=== PATIENT | female | born 1990 | race American Indian/Alaskan Native ===

== ENCOUNTER 2016-09-30 00:43 | Outpatient (CLI) | payer MEDICAID ==
--- NOTE | 2016-09-29 21:23 | Emergency Department Report ---
HPI - General Chief Complaint: Dental/Oral Time Seen by Provider: 09/29/16 21:15 - HPI HPI: Patient here complaining of right upper tooth pain with pressure to her mouth and head. She said the pain started yesterday. Pain is 10 out of 10 and achy. Denies any swelling to face. Denies any fever or chills. Denies any nausea or vomiting. Patient states that she is 25 weeks and denies any vaginal bleed or discharge and abdominal pain. Denies any back pain. Denies any urinary burning frequency or urgency. She reports that she was feeling dizzy today and she thinks is because she is not drinking enough fluids. Denies syncope or palpitation. ED Past Medical Hx - Past Medical History Previous Medical History?: Yes Hx Hypertension: No Hx CVA: No Hx Heart Attack/AMI: No Hx Congestive Heart Failure: No Hx Diabetes: No Hx Deep Vein Thrombosis: No Hx Pulmonary Embolism: No Hx GERD: No Hx Liver Disease: No Hx Renal Disease: No Hx of Cancer: No Hx Sickle Cell Disease: No Hx Arthritis: No Hx Headaches / Migraines: No Hx Seizures: No Hx Kidney Stones: No Hx Psychiatric Treatment: No Hx Asthma: Yes (as child) Hx COPD: No Hx Tuberculosis: No Hx Dementia: No Hx HIV: No - Surgical History Past Surgical History?: No Hx Coronary Stent: No Hx Open Heart Surgery: No Hx Pacemaker: No Hx Internal Defibrillator: No Hx Cholecystectomy: No Hx Appendectomy: No Hx Breast Surgery: No - Family History Family history: no significant - Social History Smoking Status: Never Smoker Substance Use Type: None - Medications Home Medications: Home Medications Medication Instructions Recorded Confirmed Last Taken Type Acetaminophen [Tylenol] 500 mg PO Q8H PRN #12 tablet 09/29/16 Unknown Rx Amoxicillin/K Clav Tab [Augmentin 1 tab PO Q12HR #20 tab 09/29/16 Unknown Rx 875 mg] ED Review of Systems ROS: Stated complaint: 24WKS PREG/TOOTHACHE/DIZZINESS Other details as noted in HPI Comment: All other systems reviewed and negative Constitutional: denies: chills, fever Eyes: denies: eye pain, vision change ENT: dental pain. denies: ear pain, throat pain, congestion Respiratory: no symptoms reported Cardiovascular: denies: chest pain, palpitations, edema, syncope Gastrointestinal: denies: abdominal pain, nausea, vomiting, diarrhea, constipation, hematemesis, melena, hematochezia Genitourinary: denies: urgency, dysuria, frequency, hematuria, discharge Musculoskeletal: denies: back pain, arthralgia, myalgia Skin: denies: rash Neurological: other (lightheadedness). denies: headache, weakness, numbness, paresthesias, confusion, abnormal gait, vertigo Physical Exam - Physical Exam Vital Signs: Vital Signs 09/29/16 19:37 Temperature 98.6 F Pulse Rate 18 L Respiratory 18 Rate Blood Pressure 110/75 O2 Sat by Pulse 99 Oximetry Vital Signs 09/29/16 09/29/16 19:37 22:24 Temperature 98.6 F Pulse Rate 18 L Pulse Rate [ 86 Lying] Pulse Rate [ 86 Sitting] Pulse Rate [ 118 H Standing] Respiratory 18 Rate Blood Pressure 110/75 Blood Pressure 106/67 [Lying] Blood Pressure 105/67 [Sitting] Blood Pressure 101/71 [Standing] O2 Sat by Pulse 99 Oximetry Orthostatic vital signs above General: This is a 26-year-old female well-nourished well-developed in no acute distress. Physical Exam: Head: Normocephalic atraumatic Mouth: Mucous membranes dry, no pharyngeal exudate or erythema. Uvula is midline and oral airway is patent. No facial swelling. No peritonsillar abscesses. Teeth #17 with cavity and no pulp exposure. No erythema and no gingival enlargement. Neck: Supple, no C-spine tenderness, no tracheal deviation. Nontender to palpate. no adenopathy Ears: Bilateral TMs normal .Bilateral EAC without any redness swelling or drainage. Abdomen: Soft, nontender to palpate in all quadrants, normal bowel sounds in all quadrant and negative CVA tenderness bilaterally. Neurological: GCS of 15, alert and oriented 3. Speech is clear and fluid. Normal gait. No motor or sensory deficit. Normal reflexes. No facial drooping. No pronator drift and negative Romberg. Eyes: Bilateral pupils equal and reactive to light, bilateral EOM intact. Bilateral sclera and conjunctiva without injection. Normal accommodation. Lungs: Cleart to auscultate bilaterally no rhonchi wheezes or rales. Normal work of breathing extremity; No CCE. +2 pulses. No neurovascular compromise Cardiovascular: S1-S2, regular rate rhythm. No murmurs. Skin: clean Dry and intact no rash no lesions Psych: Normal mood and behavior ED Course Vital Signs 09/29/16 19:37 Temperature 98.6 F Pulse Rate 18 L Respiratory 18 Rate Blood Pressure 110/75 O2 Sat by Pulse 99 Oximetry Vital Signs 09/29/16 09/29/16 19:37 22:24 Temperature 98.6 F Pulse Rate 18 L Pulse Rate [ 86 Lying] Pulse Rate [ 86 Sitting] Pulse Rate [ 118 H Standing] Respiratory 18 Rate Blood Pressure 110/75 Blood Pressure 106/67 [Lying] Blood Pressure 105/67 [Sitting] Blood Pressure 101/71 [Standing] O2 Sat by Pulse 99 Oximetry Vital Signs 09/29/16 09/29/16 09/29/16 19:37 22:24 23:50 Temperature 98.6 F Pulse Rate 18 L 103 H Pulse Rate [ From Monitor] Pulse Rate [ 86 Lying] Pulse Rate [ 86 81 Sitting] Pulse Rate [ 118 H 103 H Standing] Respiratory 18 18 Rate Blood Pressure 110/75 Blood Pressure 106/67 [Lying] Blood Pressure [Right Arm] Blood Pressure 112/74 [Right] Blood Pressure 105/67 98/66 [Sitting] Blood Pressure 101/71 112/74 [Standing] O2 Sat by Pulse 99 99 Oximetry 09/30/16 09/30/16 09/30/16 01:02 01:06 01:07 Temperature 98.4 F Pulse Rate 87 88 Pulse Rate [ 86 From Monitor] Pulse Rate [ Lying] Pulse Rate [ Sitting] Pulse Rate [ Standing] Respiratory 20 Rate Blood Pressure 99/61 Blood Pressure [Lying] Blood Pressure 99/61 [Right Arm] Blood Pressure [Right] Blood Pressure [Sitting] Blood Pressure [Standing] O2 Sat by Pulse 98 98 Oximetry 09/30/16 09/30/16 09/30/16 01:11 01:16 01:21 Temperature Pulse Rate 84 87 102 H Pulse Rate [ From Monitor] Pulse Rate [ Lying] Pulse Rate [ Sitting] Pulse Rate [ Standing] Respiratory Rate Blood Pressure Blood Pressure [Lying] Blood Pressure [Right Arm] Blood Pressure [Right] Blood Pressure [Sitting] Blood Pressure [Standing] O2 Sat by Pulse 98 98 98 Oximetry 09/30/16 09/30/16 09/30/16 01:26 01:31 01:33 Temperature Pulse Rate 93 H 96 H 93 H Pulse Rate [ From Monitor] Pulse Rate [ Lying] Pulse Rate [ Sitting] Pulse Rate [ Standing] Respiratory Rate Blood Pressure 104/72 Blood Pressure [Lying] Blood Pressure [Right Arm] Blood Pressure [Right] Blood Pressure [Sitting] Blood Pressure [Standing] O2 Sat by Pulse 98 98 Oximetry 09/30/16 09/30/16 09/30/16 01:36 01:41 01:46 Temperature Pulse Rate 96 H 89 84 Pulse Rate [ From Monitor] Pulse Rate [ Lying] Pulse Rate [ Sitting] Pulse Rate [ Standing] Respiratory Rate Blood Pressure Blood Pressure [Lying] Blood Pressure [Right Arm] Blood Pressure [Right] Blood Pressure [Sitting] Blood Pressure [Standing] O2 Sat by Pulse 100 100 100 Oximetry 09/30/16 09/30/16 09/30/16 01:48 01:51 01:56 Temperature Pulse Rate 88 86 87 Pulse Rate [ From Monitor] Pulse Rate [ Lying] Pulse Rate [ Sitting] Pulse Rate [ Standing] Respiratory Rate Blood Pressure 111/75 Blood Pressure [Lying] Blood Pressure [Right Arm] Blood Pressure [Right] Blood Pressure [Sitting] Blood Pressure [Standing] O2 Sat by Pulse 99 99 Oximetry 09/30/16 09/30/16 09/30/16 02:01 02:03 02:06 Temperature Pulse Rate 91 H 88 88 Pulse Rate [ From Monitor] Pulse Rate [ Lying] Pulse Rate [ Sitting] Pulse Rate [ Standing] Respiratory Rate Blood Pressure 109/75 Blood Pressure [Lying] Blood Pressure [Right Arm] Blood Pressure [Right] Blood Pressure [Sitting] Blood Pressure [Standing] O2 Sat by Pulse 99 99 Oximetry 09/30/16 09/30/16 09/30/16 02:11 02:16 02:23 Temperature Pulse Rate 86 85 101 H Pulse Rate [ From Monitor] Pulse Rate [ Lying] Pulse Rate [ Sitting] Pulse Rate [ Standing] Respiratory Rate Blood Pressure 105/61 Blood Pressure [Lying] Blood Pressure [Right Arm] Blood Pressure [Right] Blood Pressure [Sitting] Blood Pressure [Standing] O2 Sat by Pulse 99 100 Oximetry 09/30/16 09/30/16 09/30/16 02:33 03:49 03:50 Temperature Pulse Rate 86 93 H 95 H Pulse Rate [ From Monitor] Pulse Rate [ Lying] Pulse Rate [ Sitting] Pulse Rate [ Standing] Respiratory Rate Blood Pressure 107/67 118/70 Blood Pressure [Lying] Blood Pressure [Right Arm] Blood Pressure [Right] Blood Pressure [Sitting] Blood Pressure [Standing] O2 Sat by Pulse 99 Oximetry 09/30/16 03:55 Temperature Pulse Rate 92 H Pulse Rate [ From Monitor] Pulse Rate [ Lying] Pulse Rate [ Sitting] Pulse Rate [ Standing] Respiratory Rate Blood Pressure Blood Pressure [Lying] Blood Pressure [Right Arm] Blood Pressure [Right] Blood Pressure [Sitting] Blood Pressure [Standing] O2 Sat by Pulse 99 Oximetry - Reevaluation(s) Reevaluation #1: 09/29/16 22:30 Orthostatic vital signs heart rate increased to 118 standing and patient says she was feeling dizzy. Patient started on IV fluid normal saline to be given 1 L and she was given Tylenol 500 mg by mouth for toothache. Patient will be going to be after discharge from the emergency room. Labs drawn and sent. Urine still pending 09/29/16 23:07 FHT 162 09/30/16 19:05 Reevaluation #2: 09/29/16 23:07 Patient remained stable and IV fluid infusion. She still to give urine specimen Reevaluation #3: 09/30/16 00:35 Patient transfer to labor delivery for further evaluation and treatment @25 weeks. Orthostartics better. She was feeling better. 09/30/16 19:08 ED Medical Decision Making - Lab Data Result diagrams: 09/29/16 21:48 09/29/16 21:48 Lab Results 09/29/16 09/29/16 Range/Units 21:48 21:48 WBC 13.4 H (4.5-11.0) K/mm3 RBC 3.97 (3.65-5.03) M/mm3 Hgb 11.9 (10.1-14.3) gm/dl Hct 35.9 (30.3-42.9) % MCV 90 (79-97) fl MCH 30 (28-32) pg MCHC 33 (30-34) % RDW 13.7 (13.2-15.2) % Plt Count 236 (140-440) K/mm3 Lymph % (Auto) 12.2 L (13.4-35.0) % [place] % (Auto) 7.1 (0.0-7.3) % Eos % (Auto) 0.3 (0.0-4.3) % Baso % (Auto) 0.2 (0.0-1.8) % Lymph # 1.6 (1.2-5.4) K/mm3 [place] # 1.0 H (0.0-0.8) K/mm3 Eos # 0.0 (0.0-0.4) K/mm3 Baso # 0.0 (0.0-0.1) K/mm3 Seg Neutrophils % 80.2 H (40.0-70.0) % Seg Neutrophils # 10.8 H (1.8-7.7) K/mm3 Sodium 138 (137-145) mmol/L Potassium 4.2 (3.6-5.0) mmol/L Chloride 99.1 (98-107) mmol/L Carbon Dioxide 22 (22-30) mmol/L Anion Gap 21 mmol/L BUN 6 L (7-17) mg/dL Creatinine 0.4 L (0.7-1.2) mg/dL Estimated GFR > 60 ml/min BUN/Creatinine Ratio 15.00 % Glucose 93 (65-100) mg/dL Calcium 9.7 (8.4-10.2) mg/dL Lab Results 09/29/16 09/29/16 09/29/16 Range/Units 21:48 21:48 22:32 WBC 13.4 H (4.5-11.0) K/mm3 RBC 3.97 (3.65-5.03) M/mm3 Hgb 11.9 (10.1-14.3) gm/dl Hct 35.9 (30.3-42.9) % MCV 90 (79-97) fl MCH 30 (28-32) pg MCHC 33 (30-34) % RDW 13.7 (13.2-15.2) % Plt Count 236 (140-440) K/mm3 Lymph % (Auto) 12.2 L (13.4-35.0) % [place] % (Auto) 7.1 (0.0-7.3) % Eos % (Auto) 0.3 (0.0-4.3) % Baso % (Auto) 0.2 (0.0-1.8) % Lymph # 1.6 (1.2-5.4) K/mm3 [place] # 1.0 H (0.0-0.8) K/mm3 Eos # 0.0 (0.0-0.4) K/mm3 Baso # 0.0 (0.0-0.1) K/mm3 Seg Neutrophils % 80.2 H (40.0-70.0) % Seg Neutrophils # 10.8 H (1.8-7.7) K/mm3 Sodium 138 (137-145) mmol/L Potassium 4.2 (3.6-5.0) mmol/L Chloride 99.1 (98-107) mmol/L Carbon Dioxide 22 (22-30) mmol/L Anion Gap 21 mmol/L BUN 6 L (7-17) mg/dL Creatinine 0.4 L (0.7-1.2) mg/dL Estimated GFR > 60 ml/min BUN/Creatinine Ratio 15.00 % Glucose 93 (65-100) mg/dL Calcium 9.7 (8.4-10.2) mg/dL TSH (0.270-4.200) mlU/mL HCG, Quant 3069 H (0-4) mIU/mL Urine Color (Yellow) Urine Turbidity (Clear) Urine pH (5.0-7.0) Ur Specific [place] (1.003-1.030) Urine Protein (Negative) mg/dL Urine Glucose (UA) (Negative) mg/dL Urine Ketones (Negative) mg/dL Urine Blood (Negative) Urine Nitrite (Negative) Urine Bilirubin (Negative) Urine Urobilinogen (<2.0) mg/dL Ur Leukocyte Esterase (Negative) Urine WBC (Auto) (0.0-6.0) /HPF Urine RBC (Auto) (0.0-6.0) /HPF U Epithel Cells (Auto) (0-13.0) /HPF Urine Mucus /HPF 09/29/16 09/29/16 Range/Units 23:09 23:22 WBC (4.5-11.0) K/mm3 RBC (3.65-5.03) M/mm3 Hgb (10.1-14.3) gm/dl Hct (30.3-42.9) % MCV (79-97) fl MCH (28-32) pg MCHC (30-34) % RDW (13.2-15.2) % Plt Count (140-440) K/mm3 Lymph % (Auto) (13.4-35.0) % [place] % (Auto) (0.0-7.3) % Eos % (Auto) (0.0-4.3) % Baso % (Auto) (0.0-1.8) % Lymph # (1.2-5.4) K/mm3 [place] # (0.0-0.8) K/mm3 Eos # (0.0-0.4) K/mm3 Baso # (0.0-0.1) K/mm3 Seg Neutrophils % (40.0-70.0) % Seg Neutrophils # (1.8-7.7) K/mm3 Sodium (137-145) mmol/L Potassium (3.6-5.0) mmol/L Chloride (98-107) mmol/L Carbon Dioxide (22-30) mmol/L Anion Gap mmol/L BUN (7-17) mg/dL Creatinine (0.7-1.2) mg/dL Estimated GFR ml/min BUN/Creatinine Ratio % Glucose (65-100) mg/dL Calcium (8.4-10.2) mg/dL TSH 1.600 (0.270-4.200) mlU/mL HCG, Quant (0-4) mIU/mL Urine Color Yellow (Yellow) Urine Turbidity Clear (Clear) Urine pH 6.0 (5.0-7.0) Ur Specific [place] 1.010 (1.003-1.030) Urine Protein <15 mg/dl (Negative) mg/dL Urine Glucose (UA) Neg (Negative) mg/dL Urine Ketones Neg (Negative) mg/dL Urine Blood Neg (Negative) Urine Nitrite Neg (Negative) Urine Bilirubin Neg (Negative) Urine Urobilinogen < 2.0 (<2.0) mg/dL Ur Leukocyte Esterase Tr (Negative) Urine WBC (Auto) 1.0 (0.0-6.0) /HPF Urine RBC (Auto) 2.0 (0.0-6.0) /HPF U Epithel Cells (Auto) 3.0 (0-13.0) /HPF Urine Mucus Few /HPF - Medical Decision Making ED Course: patient here reports toothache and lightheadedness. She was found to have mild dehydration, Leukocytosis and toothace. She was treated in ER because of positive orthostatics. UA, bmp, cbc with elevated wbc with slight shift to the labs. VSS and patient discharged to OB floor due to 25 weeks with no related problems. Labs explaing to patient. She is feeling better without lightheadedness. Critical care attestation.: If time is entered above; I have spent that time in minutes in the direct care of this critically ill patient, excluding procedure time. ED Disposition Clinical Impression: Dehydration during , Dental caries, Lightheadedness, Tooth ache Leukocytosis, unspecified Qualifiers: Leukocytosis type: unspecified Qualified Code(s): D72.829 - Elevated white blood cell count, unspecified Disposition: TO HOME OR SELFCARE Is pt being admited?: No Does the pt Need Aspirin: No Condition: Stable
[2016-09-29 22:24] LABS: Basophils % (Auto) 0.2 % (0.0-1.8); Eosinophils % (Auto) 0.3 % (0.0-4.3); Hematocrit 35.9 % (30.3-42.9); Hemoglobin 11.9 gm/dl (10.1-14.3); Mean Corpuscular HGB Conc 33 % (30-34); Mean Corpuscular Hemoglobin 30 pg (28-32); Mean Corpuscular Volume 90 fl (79-97); Platelet Count 236 K/mm3 (140-440); Red Blood Count 3.97 M/mm3 (3.65-5.03); Red Cell Distribution Width 13.7 % (13.2-15.2); White Blood Count 13.4 K/mm3 (4.5-11.0)
[2016-09-29 22:42] LABS: Anion Gap 21 mmol/L; Blood Urea Nitrogen 6 mg/dL (7-17); Calcium 9.7 mg/dL (8.4-10.2); Carbon Dioxide 22 mmol/L (22-30); Chloride 99.1 mmol/L (98-107); Glucose 93 mg/dL (65-100); Potassium 4.2 mmol/L (3.6-5.0); Sodium 138 mmol/L (137-145)
[2016-09-29 23:28] LABS: Bilirubin,Urine NEG (Negative); Blood,Urine NEG (Negative); Ketones,Urine NEG (Negative); Leukocyte Esterase,Urine TR (Negative); Mucus,Urine FEW /HPF; Nitrite,Urine NEG (Negative); Protein,Urine <15 mg/dL mg/dL (Negative); Urobilinogen,Urine < 2.0 mg/dL (<2.0)
[~2016-09-30 00:43] MED LIST: NACL 0.9% 1000 ML 1,000 ML IV ONE; TYLENOL PO ONE
[2016-09-30] MEDS ORDERED: LACTATED RINGERS 1,000 ML IV ONE (01:26)
[2016-09-30 03:53] VITALS: BP 118/70
== END 2016-09-30 03:16 | disposition home or self-care (01) ==
LOC: TRG 00:43 → EDSTATUS 00:44 → TRG 00:49
PROVIDERS: ATTEND Obstetrics & Gynecology
DX: O26.892 Other specified pregnancy related conditions, second trimester (principal); R42 Dizziness and giddiness; K08.89 Other specified disorders of teeth and supporting structures; Z3A.24 24 weeks gestation of pregnancy
CPT/HCPCS: 36415; 59025; 80048; 81001; 84443; 84702; 85025; 96360; J7030; J7120; 99283

== ENCOUNTER 2016-11-06 18:43 | Outpatient (CLI) | payer MEDICAID ==
[2016-11-06 19:11] VITALS: BP 96/63
[2016-11-06] MEDS ORDERED: LACTATED RINGERS 1,000 ML IV ONE (20:00)
[2016-11-06 20:04] LABS: Bacteria,Urine 2+ /HPF (Negative); Bilirubin,Urine NEG (Negative); Blood,Urine NEG (Negative); Ketones,Urine NEG (Negative); Leukocyte Esterase,Urine SM (Negative); Mucus,Urine FEW /HPF; Nitrite,Urine NEG (Negative); Protein,Urine <15 mg/dL mg/dL (Negative); Urobilinogen,Urine < 2.0 mg/dL (<2.0)
== END 2016-11-06 20:42 | disposition home or self-care (01) ==
LOC: TRG 18:43
PROVIDERS: ATTEND Obstetrics & Gynecology
DX: O47.03 False labor before 37 completed weeks of gestation, third trimester (principal); Z3A.30 30 weeks gestation of pregnancy
CPT/HCPCS: 81001; 96360; J7120

== ENCOUNTER 2016-12-02 15:52 | Outpatient (CLI) | payer MEDICAID ==
[2016-12-02] MEDS ORDERED: LACTATED RINGERS 500 ML IV ONE (17:05)
[2016-12-02 18:48] LABS: Bilirubin,Urine NEG (Negative); Blood,Urine NEG (Negative); Ketones,Urine NEG (Negative); Leukocyte Esterase,Urine TR (Negative); Mucus,Urine FEW /HPF; Nitrite,Urine NEG (Negative); Protein,Urine <15 mg/dL mg/dL (Negative); RBC,Urine < 1.0 /HPF (0.0-6.0); Urobilinogen,Urine < 2.0 mg/dL (<2.0); WBC,Urine < 1.0 /HPF (0.0-6.0)
[2016-12-02 19:59] VITALS: BP 102/62
--- NOTE | 2016-12-03 07:37 | Ultrasound Report ---
ULTRASOUND BIOPHYSICAL PROFILE: History: well being, decreased movement Technique: Transabdominal ultrasound with Doppler interrogation. 2 - breathing movements 2 - movements 2 - posture and tone 2 - Qualitative amniotic fluid volume 8 - TOTAL SCORE OF POSSIBLE 8 Heart Rate (bpm) 141
== END 2016-12-02 21:07 | disposition home or self-care (01) ==
LOC: TRG 15:52
PROVIDERS: ATTEND Obstetrics & Gynecology
DX: O36.8130 Decreased fetal movements, third trimester, not applicable or unspecified (principal); Z3A.34 34 weeks gestation of pregnancy
CPT/HCPCS: 76819; 81001; 96360; J7120

== ENCOUNTER 2016-12-03 16:57 | Outpatient (CLI) | payer MEDICAID ==
[2016-12-03 17:51] VITALS: BP 93/56
[2016-12-03] MEDS ORDERED: LACTATED RINGERS 500 ML IV ONE (19:00)
[2016-12-03 19:32] LABS: Bacteria,Urine 1+ /HPF (Negative); Bilirubin,Urine NEG (Negative); Blood,Urine NEG (Negative); Ketones,Urine NEG (Negative); Leukocyte Esterase,Urine MOD (Negative); Mucus,Urine FEW /HPF; Nitrite,Urine NEG (Negative); Protein,Urine <15 mg/dL mg/dL (Negative); Urobilinogen,Urine < 2.0 mg/dL (<2.0)
== END 2016-12-03 20:45 | disposition home or self-care (01) ==
LOC: TRG 16:57
PROVIDERS: ATTEND Obstetrics & Gynecology
DX: O47.03 False labor before 37 completed weeks of gestation, third trimester (principal); Z3A.34 34 weeks gestation of pregnancy
CPT/HCPCS: 81001; 96360; J7120

== ENCOUNTER 2017-01-04 18:59 | Outpatient (CLI) | payer MEDICAID ==
[2017-01-04 19:18] VITALS: BP 105/62
[2017-01-04] MEDS ORDERED: LACTATED RINGERS 1,000 ML ONE (20:08)
[2017-01-04] MEDS ORDERED: LACTATED RINGERS 1,000 ML IV ONE (21:59)
== END 2017-01-04 21:04 | disposition home or self-care (01) ==
LOC: TRG 18:59
PROVIDERS: ATTEND Obstetrics & Gynecology
DX: O47.1 False labor at or after 37 completed weeks of gestation (principal); Z3A.38 38 weeks gestation of pregnancy
CPT/HCPCS: 96360; J7120

== ENCOUNTER 2017-01-10 21:08 | Emergency (ER) | payer MEDICAID ==
[2017-01-10 22:07] LABS: Basophils % (Auto) 0.4 % (0.0-1.8); Eosinophils % (Auto) 2.6 % (0.0-4.3); Hematocrit 28.6 % (30.3-42.9); Hemoglobin 9.3 gm/dl (10.1-14.3); Mean Corpuscular HGB Conc 33 % (30-34); Mean Corpuscular Hemoglobin 30 pg (28-32); Mean Corpuscular Volume 91 fl (79-97); Platelet Count 292 K/mm3 (140-440); Red Blood Count 3.16 M/mm3 (3.65-5.03); Red Cell Distribution Width 15.9 % (13.2-15.2); White Blood Count 6.3 K/mm3 (4.5-11.0)
--- NOTE | 2017-01-10 22:22 | Emergency Department Report ---
ED Fever HPI - General Chief Complaint: Fever Stated Complaint: FEVER Time Seen by Provider: 01/10/17 22:13 Source: patient Exam Limitations: no limitations - History of Present Illness Initial Comments: 26 years old female status post 5 days ago, complaining of fever chills for the last 3 days she stated that she's been taking ibuprofen and that usually help with her fever. She is complaining of shortness of breath but denied any chest pain. No significant abdominal pain or vaginal discharge. Patient is complaining BURNING sensation when she voids. 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 denies: abdominal pain, confusion, cough, headache, stiff neck ED Review of Systems ROS: Stated complaint: FEVER Other details as noted in HPI Comment: All other systems reviewed and negative Constitutional: chills, fever ENT: denies: ear pain, throat pain Respiratory: shortness of breath. denies: cough, orthopnea Cardiovascular: denies: chest pain, palpitations Gastrointestinal: denies: abdominal pain, nausea, vomiting, diarrhea Genitourinary: urgency, dysuria, frequency. denies: hematuria, discharge Musculoskeletal: denies: back pain Neurological: denies: headache, weakness, numbness ED Past Medical Hx - Past Medical History Hx Hypertension: No Hx CVA: No Hx Heart Attack/AMI: No Hx Congestive Heart Failure: No Hx Diabetes: No Hx Deep Vein Thrombosis: No Hx Pulmonary Embolism: No Hx GERD: No Hx Liver Disease: No Hx Renal Disease: No Hx Sickle Cell Disease: No Hx Arthritis: No Hx Headaches / Migraines: No Hx Seizures: No Hx Kidney Stones: No Hx Psychiatric Treatment: No Hx Asthma: Yes (CHILDHOOD 2013 LAST EPISODE) Hx COPD: No Hx Tuberculosis: No Hx Dementia: No Hx HIV: No - Surgical History Hx Coronary Stent: No Hx Open Heart Surgery: No Hx Pacemaker: No Hx Internal Defibrillator: No Hx Cholecystectomy: No Hx Appendectomy: No Hx Breast Surgery: No Additional Surgical History: C section 01/06/17 no complications, Full Term - Social History Smoking Status: Never Smoker - Medications Home Medications: Home Medications Medication Instructions Recorded Confirmed Last Taken Type Vit-Fe Fumar-FA [ 1 tab PO QDAY 01/04/17 01/06/17 12/30/16 17: 00 History Vitamin] Ferrous Sulfate [Feosol 325 MG tab] 325 mg PO BID #60 tablet 01/06/17 Unknown Rx Ibuprofen [Motrin 800 MG tab] 800 mg PO Q6H PRN #30 tablet 01/06/17 Unknown Rx oxyCODONE /ACETAMINOPHEN [Percocet 1 - 2 tab PO Q4H PRN #30 tablet 01/06/17 Unknown Rx 5/325 mg] Lidocain2.5%/Prilocai2.5% [Emla] 5 gm TP PRN #1 tube 01/07/17 Unknown Rx ED Physical Exam - General Limitations: No Limitations General appearance: alert, in no apparent distress - Head Head exam: Present: normocephalic - Eye Eye exam: Present: normal appearance - ENT ENT exam: Present: normal exam - Neck Neck exam: Present: normal inspection. Absent: tenderness, meningismus, full ROM - Respiratory Respiratory exam: Present: normal lung sounds bilaterally. Absent: wheezes, rales, rhonchi - Cardiovascular Cardiovascular Exam: Present: regular rate, normal rhythm, normal heart sounds - GI/Abdominal GI/Abdominal exam: Present: soft, normal bowel sounds. Absent: distended, tenderness, guarding, rebound, rigid, mass, bruit, pulsatile mass, hernia - Extremities Exam Extremities exam: Present: normal inspection, normal capillary refill. Absent: pedal edema, calf tenderness - Back Exam Back exam: Absent: CVA tenderness (R), CVA tenderness (L) - Neurological Exam Neurological exam: Present: alert, oriented X3, CN II-XII intact, normal gait - Skin Skin exam: Present: warm, intact, normal color ED Course Vital Signs 01/10/17 01/10/17 01/10/17 21:44 22:12 23:33 Temperature 98.3 F 98.5 F Pulse Rate 60 56 L Respiratory 20 20 18 Rate Blood Pressure 111/70 Blood Pressure 110/69 [Left] O2 Sat by Pulse 98 100 100 Oximetry ED Medical Decision Making - Lab Data Result diagrams: 01/10/17 21:51 01/10/17 21:51 - EKG Data -: EKG Interpreted by Me EKG shows normal: sinus rhythm Rate: bradycardia - EKG Data Interpretation: no acute changes - Radiology Data Radiology results: report reviewed, image reviewed interpreted by me: Chest x-rays no acute abnormalities Pelvic ultrasound/abdominal ultrasound showed an intrauterine hematoma - Medical Decision Making Patient stated that she is feeling better discussed with Dr. Rothman informed about the patient and the finding and could try and hematoma Dr. Rothman stated that patient can go home and follow up with her in the office Critical care attestation.: If time is entered above; I have spent that time in minutes in the direct care of this critically ill patient, excluding procedure time. ED Disposition Clinical Impression: Fever, Abdominal pain Disposition: DC-01 TO HOME OR SELFCARE Is pt being admited?: No Condition: Stable Referrals: PRIMARY CARE, [Primary Care Provider] - 3-5 Days
[2017-01-10 22:24] LABS: Anion Gap 18 mmol/L; Blood Urea Nitrogen 8 mg/dL (7-17); Calcium 9.6 mg/dL (8.4-10.2); Carbon Dioxide 21 mmol/L (22-30); Glucose 79 mg/dL (65-100); Sodium 139 mmol/L (137-145)
[2017-01-10 23:02] LABS: Bilirubin,Urine NEG (Negative); Blood,Urine NEG (Negative); Ketones,Urine NEG (Negative); Leukocyte Esterase,Urine NEG (Negative); Mucus,Urine FEW /HPF; Nitrite,Urine NEG (Negative); Protein,Urine <15 mg/dL mg/dL (Negative); Urobilinogen,Urine < 2.0 mg/dL (<2.0)
--- NOTE | 2017-01-10 23:12 | XRay Report ---
FINAL REPORT PROCEDURE: Chest. TECHNIQUE: Portable AP view. HISTORY: Chest pain. COMPARISON: No prior studies are available for comparison. FINDINGS: The heart and mediastinum appear normal. The lungs are clear and well expanded. There is mild tortuosity of the thoracic aorta. There are no pleural effusions. The soft tissues and regional skeleton are unremarkable. IMPRESSION: No evidence of acute disease.
[2017-01-11] MEDS ORDERED: NACL ONE (00:46)
--- NOTE | 2017-01-11 04:16 | Ultrasound Report ---
FINAL REPORT PROCEDURE: US ABDOMEN COMPLETE TECHNIQUE: Real-time sonography in multiple planes of the abdomen was performed with image documentation. CPT 59341 HISTORY: abdominal pain COMPARISON: No prior studies are available for comparison. FINDINGS: Liver: Normal size and echotexture with no evidence of cystic or solid mass lesions. Gallbladder: Fluid filled. No gallstones, wall thickening, pericholecystic fluid, or sonographic Dawkins's sign. Intrahepatic bile ducts: Normal caliber . Extrahepatic bile ducts: Normal caliber. Pancreas: Normal as visualized with suboptimal depiction of the pancreatic tail. Aorta: Visualized portions appear normal. IVC: Visualized portions appear normal. RIGHT kidney: Normal echotexture. No focal renal mass, calculus, or hydronephrosis. Length: 13cm. LEFT kidney: Normal echotexture. No focal renal mass, calculus, or hydronephrosis . Length: 10.5cm. Spleen: Normal size and echotexture. No focal lesions. Intraperitoneal fluid: None . Other: None . IMPRESSION: Normal Examination.
--- NOTE | 2017-01-11 04:18 | Ultrasound Report ---
FINAL REPORT PROCEDURE: US PELVIC COMPLETE TECHNIQUE: Real-time transvaginal sonography in multiple planes of the pelvis was performed. The pelvic structures, especially the ovaries were not optimally visualized. HISTORY: abdominal pain, s/p COMPARISON: No prior studies are available for comparison. FINDINGS: UTERUS Size: 21.6 x 10.1 x 10.3 cm. Endometrial thickness: 31.4 mm. There is heterogeneous echotexture suggesting possible endometrial hematoma. Orientation: anteverted. Cervix: Normal. Fibroids/masses: None. The ovaries are not seen. Pelvic fluid: None. Other: None. IMPRESSION: Endometrium is thickened and heterogeneous. Possible endometrial blood clot considered. There is no myometrial mass. The ovaries are not seen. There is no free pelvic fluid.
[2017-01-11 05:15] VITALS: BP 116/70
== END 2017-01-11 05:46 | disposition home or self-care (01) ==
LOC: ED 21:08
DX: R50.9 Fever, unspecified (principal); R10.9 Unspecified abdominal pain; R30.0 Dysuria; J45.909 Unspecified asthma, uncomplicated
CPT/HCPCS: 36415; 71010; 76700; 76856; 80048; 81001; 84484; 85025; 93005; 93010

== ENCOUNTER 2018-06-15 13:59 | Outpatient (CLI) | payer MEDICAID ==
--- NOTE | 2018-06-15 16:35 | Ultrasound Report ---
FINAL REPORT EXAM: US OB < = 14 WEEKS FETUS HISTORY: Paratyphoid fever A TECHNIQUE: Transabdominal and transvaginal grayscale and color-flow imaging of the pelvis was perfor med. Comparison: None FINDINGS: The uterus measures 9.9 centimeters x 6.5 centimeters x 8.7 centimeters. There is demonstration of an intrauterine gestational sac with pole and yolk sac. Estimated ges tational age by measurement of crown-rump length (5.5 millimeters) is 6 weeks 2 days. No cardia c activity is demonstrated at this time. There is a small, approximately 1.8 centimeter x 0.6 centimeter x 3.2 centimeters, subchorionic hypoe choic collection which may represent a small subchorionic hemorrhage. The right ovary measures 2.7 centimeters x 2.3 centimeters x 3.4 centimeters is normal in appearance and contains follicles.. The left ovary measures 4.1 centimeters x 2.2 centimeters x 3.7 centimeters is normal in appearance a nd contains follicles. Flow is demonstrated in both ovaries utilizing color flow imaging. No free fluid is demonstrated in the pelvis. IMPRESSION: 1. Demonstration of an intrauterine gestation with estimated gestational age of 6 weeks 2 days by tico surement of crown-rump length. No cardiac activity is demonstrated at this time. Short-term follow-up in correlation with beta HCG is recommended for further evaluation. 2. Small probable subchorionic hemorrhage.
--- NOTE | 2018-06-15 16:44 | Ultrasound Report ---
FINAL REPORT EXAM: US OB TRANSVAGINAL HISTORY: Paratyphoid fever A TECHNIQUE: Transabdominal and transvaginal grayscale and color-flow imaging of the pelvis was perfor med. Comparison: None FINDINGS: The uterus measures 9.9 centimeters x 6.5 centimeters x 8.7 centimeters. There is demonstration of an intrauterine gestational sac with pole and yolk sac. Estimated ges tational age by measurement of crown-rump length (5.5 millimeters) is 6 weeks 2 days. No cardia c activity is demonstrated at this time. There is a small, approximately 1.8 centimeter x 0.6 centimeter x 3.2 centimeter, subchorionic hypoec hoic collection which may represent a small subchorionic hemorrhage. The right ovary measures 2.7 centimeters x 2.3 centimeters x 3.4 centimeters, is normal in appearance and contains follicles. The left ovary measures 4.1 centimeters x 2.2 centimeters x 3.7 centimeters, is normal in appearance and contains follicles. Flow is demonstrated in both ovaries utilizing color flow imaging. No free fluid is demonstrated in the pelvis. IMPRESSION: 1. Demonstration of an intrauterine gestation with estimated gestational age of 6 weeks 2 days by tico surements of crown-rump length. No cardiac activity is demonstrated at this time. Short-term follow-up in correlation with beta HCG is recommended for further evaluation. 2. Small probable subchorionic hemorrhage.
== END 2018-06-15 14:00 | disposition home or self-care (01) ==
LOC: US 13:59
PROVIDERS: ATTEND Obstetrics & Gynecology
DX: O02.1 Missed abortion (principal); Z3A.01 Less than 8 weeks gestation of pregnancy
CPT/HCPCS: 76801; 76817

== ENCOUNTER 2018-07-01 06:06 | Day surgery (SDC) | payer MEDICAID ==
--- NOTE | 2018-06-30 12:46 | History and Physical Report ---
History of Present Illness Date of examination: 06/30/18 History of present illness: Patient has been reassessed/reevaluated. H&P has been reviewed. No interval changes. This is a 28 years old with a missed . Patient desires definitive treatment Medical and surgical treatment options discussed Patient desires D&C Patient denies any vaginal bleeding or cramping. Patient's blood type is O positive. Vital Signs: Patient Profile: 28 Years Old Female Height: 63 inches (160.02 cm) Weight: 151 pounds (68.64 kg) BMI: 26.75 Past History : 5 Term Births: 3 Premature Births: 1 Living Children: 4 Para: 4 Mult. Births: 0 Prev : 2 Prev. attempt? 0 Aborta: 0 Elect. Ab: 0 Spont. Ab: 0 Ectopics: 0 # 1 Delivery date: 05/21/2009 Weeks Gestation: 40 Delivery type: Vaginal Hours of labor: 9 Anesthesia type: none Delivery location: [facility] Sex: Male weight: 8.38 Name: Enoc # 2 Delivery date: 10/28/2012 Weeks Gestation: 40 Delivery type: Hours of labor: 8 Delivery location: [facility] Infant Sex: Male weight: 9-4 Name: Denilson # 3 Delivery date: 11/05/2014 Weeks Gestation: 31.5 Delivery type: Delivery location: [facility] Infant Sex: Male weight: 2'10 Comments: abruption, bled during . growth retardation. 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 of genital herpes: no Partner hx. of genital herpes: no Hx of STD: none Current Allergies: * NKDA (Critical) * LATEX (Critical) * SEAFOOD (Critical) Past Medical History: Blood Transfusion (2012) Blood Transfusion (2014) Anemia Past Surgical History: 2014 (01/06/2017) Family History Summary: no ovarian, no colon or breast cancer fh of DM No Family History of DVT/PE on OCP heart dz Social History: single no e/t/d Smoking History: Patient has never smoked. Risk Factors: Smoked Tobacco Use: Never smoker Smokeless Tobacco Use: Never Passive smoke exposure: no Drug use: no HIV high-risk behavior: no Alcohol use: no Exercise: no Seatbelt use: 100 % Review of Systems General Denies fever, chills, sweats, anorexia, fatigue, weakness, malaise, weight loss and sleep disorder. Denies vaginal discharge, incontinence, dysuria, hematuria, urinary frequency, amenorrhea, menorrhagia, abnormal vaginal bleeding, pelvic pain, genital sores, decreased libido, painful periods, painful sex, urinary urgency, hot flashes, vaginal dryness, vaginal itching and vaginal odor. CV Denies chest pains, palpitations, syncope, dyspnea on exertion, orthopnea, PND and peripheral edema. Resp Denies cough, dyspnea at rest, excessive sputum, hemoptysis, wheezing and pleurisy. GI Denies nausea, vomiting, diarrhea, constipation, change in bowel habits, abdominal pain, melena, hematochezia, jaundice, gas/bloating, indigestion/heartburn, dysphagia and odynophagia. Breast Denies left breast lump, right breast lump, nipple discharge, bloody discharge from nipple, breast pain, abnormal mammogram and breast enlargement. Psych Denies depression, anxiety, irritability and mood swings. Past History Past Medical History: other (See HPI) Past Surgical History: , Other (See HPI) Social history: full code, other (See HPI) Family history: other (See HPI) Medications and Allergies Allergies Allergy/AdvReac Type Severity Reaction Status Date / Time Fish Containing Products Allergy Angioedema Verified 07/01/18 06:28 latex Allergy Itching, Verified 07/01/18 06:28 swelling Home Medications Medication Instructions Recorded Confirmed Last Taken Type No Known Home Medications [No 06/29/18 06/29/18 Unknown History Reported Home Medications] Review of Systems Constitutional: other (See HPI) Exam - Physical Exam Narrative exam: HEENT: normocephalic, no lesions or deformities Skin no abnormal lesions or rashes Chest: respiratory effort normal, clear to auscultation CV: regular, normal S1-S2, no murmur, no rub, no gallop Abdomen: normal bowel sounds, soft, nontender, no HSM Well healed pfannenstiel scar Musculoskeletal: grossly normal ROM in joints, no joint tenderness or muscle weakness Neuro: no gross anomalities Extremities: no discoloration or edema 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 No evidence of cystocele or rectocele. Cervix: normal appearance, no lesions, no discharge Uterus: enlarged uterus 8 - 10 weeks size Adnexae: no masses or tenderness Rectovaginal: exam defered Results - Labs CBC & Chem 7: 07/01/18 06:50 Assessment and Plan - Patient Problems (1) Missed Current Visit: No Status: Acute Plan to address problem: Diagnosis explained to patient . Questions answered. Medical and surgical treatment options discussed Discussed risks and benefits of expectant management, treatments with medications and dilatation and curretage. Patient desires D&C . Discussed risk of surgery including infection, bleeding and risk of perforating her uterus. Questions answered. Patient understands and desires to proceed (2) Blood type O+ Current Visit: No Status: Acute (3) Blood type, Rh positive Current Visit: No Status: Acute
[2018-07-01] MEDS ORDERED: LACTATED RINGERS 1,000 ML IV SCH (06:10)
[2018-07-01] MEDS ORDERED: NACL BACTERIOSTATIC INFILTRATI ONE (06:38)
[2018-07-01 07:03] LABS: Hematocrit 36.3 % (30.3-42.9); Hemoglobin 12.2 gm/dl (10.1-14.3)
[2018-07-01] MEDS ORDERED: NEURONTIN ONE (07:04)
[2018-07-01] MEDS ORDERED: VERSED ONE (07:04)
--- NOTE | 2018-07-01 07:04 | Anesthesia Consultation ---
Anesthesia Consult and Med Hx Date of service: 07/01/18 - Airway Anesthetic Teeth Evaluation: Good ROM Head & Neck: Adequate Mental/Hyoid Distance: Adequate Mallampati Class: Class II Intubation Access Assessment: Probably Good - Pulmonary Exam CTA: Yes - Pre-Operative Health Status ASA Pre-Surgery Classification: ASA2 Proposed Anesthetic Plan: General - Pulmonary Hx Asthma: Yes (childhood but flairs up with pregnancies) COPD: No Hx Pneumonia: No - Cardiovascular System Hx Hypertension: No Hx Heart Attack/AMI: No Hx Pacemaker: No Hx Internal Defibrillator: No - Central Nervous System Hx Seizures: Yes (Febrile seizure at age 1) Hx Psychiatric Problems: No - Endocrine Hx Renal Disease: No Hx End Stage Renal Disease: No Hx Liver Disease: No Hx Hypothyroidism: No Hx Hyperthyroidism: No - Hematic Hx Anemia: Yes (On & off) Hx Sickle Cell Disease: No - Other Systems Hx Alcohol Use: No Hx Cancer: No
--- NOTE | 2018-07-01 07:05 | Anesthesia Day of Surgery ---
Anesthesia Day of Surgery - Day of Surgery Patient Examined: Yes Patient H&P Reviewed: Yes Patient is NPO: Yes Beta Blockers: No Cardiac Clearance: No Pulmonary Clearance: No Jorge Luis's Test: N/A
[2018-07-01] MEDS ORDERED: ZEMURON IV ONE (07:06)
[2018-07-01] MEDS ORDERED: SUBLIMAZE ONE (07:06)
[2018-07-01] MEDS ORDERED: DIPRIVAN 10 MG/ML IV ONE (07:06)
[2018-07-01] MEDS ORDERED: XYLOCAINE MPF 2% ONE (07:06)
[2018-07-01] MEDS ORDERED: ROBINUL ONE (07:07)
[2018-07-01] MEDS ORDERED: DECADRON ONE (07:07)
[2018-07-01] MEDS ORDERED: BLOXIVERZ ONE (07:07)
[2018-07-01] MEDS ORDERED: SILVER NITRATE TP ONE ×4 (07:20→08:09)
[2018-07-01] MEDS ORDERED: METHERGINE IM ONE ×2 (07:20→07:54)
[2018-07-01] MEDS ORDERED: DILAUDID IV PRN (07:30)
[2018-07-01] MEDS ORDERED: ZOFRAN IV PRN (07:30)
[2018-07-01] MEDS ORDERED: NEURONTIN PO NR (07:30)
[2018-07-01] MEDS ORDERED: VERSED IV NR (07:30)
[2018-07-01] MEDS ORDERED: NACL 0.9% IR ONE (07:46)
--- NOTE | 2018-07-01 08:28 | Operative Report ---
Operative Report Operative Report: Date of procedure: 07/01/2018 Pre-operative diagnosis: Missed Post-operative diagnosis: Same Procedure name(s): Suction dilatation and curettage Surgeon: Rosalino Boyce MD Puppet Maker: [] Anesthesia: General EBL: 50 mL Complications: None Findings: A moderate amount of tissue consistent with products of conception Specimen(s): Uterine contents Procedure: The patient was brought operating room where general anesthesia was induced without difficulty. Patient was placed in dorsal lithotomy position prepped and draped in the usual sterile manner. Rubber catheter was used to empty her bladder. Speculum placed in the vagina. Tenaculum was placed at 12:00. The cervix was dilated progressively with Hegar dilators. A 10 mm suction catheter was placed through the cervical os. Several passes of the suction catheter removed the uterine contents. General curettage was done with a banjo curettte until a gritty sensation was felt throughout the uterine cavity. Further suction with the suction curettage revealed no further products. During the procedure the tenaculum pulled through the anterior lip of the cervix the lacerations needed repair with 3-0 Vicryl with good hemostasis. Patient did have some general oozing friable cervix. Silver nitrate was placed but required packing with a Kerlix soaked with saline that will be removed in recovery room. She was awakened in the operating room and accompanied to recovery room in good condition.
--- NOTE | 2018-07-01 08:30 | Short Stay Summary ---
Short Stay Documentation Date of service: 07/01/18 - History Principal diagnosis: missed H&P: dictated Past Medical History: other (See HPI) Past Surgical History: , Other (See HPI) Social history: full code, other (See HPI) - Allergies and Medications Current Medications: Allergies Fish Containing Products Allergy (Verified 07/01/18 06:28) Angioedema latex Allergy (Verified 07/01/18 06:28) Itching, swelling Home Medications Medication Instructions Recorded Confirmed Last Taken Type Acetaminophen/Codeine [Tylenol #3] 1 tab PO Q4HR PRN #20 tablet 07/01/18 Unknown Rx Ibuprofen [Motrin 800 MG tab] 800 mg PO Q6H PRN #30 tablet 07/01/18 Unknown Rx Methylergonovine [Methergine] 0.2 mg PO Q8HR #6 tablet 07/01/18 Unknown Rx Active Medications Celecoxib (Celebrex) 200 mg PO PREOP NR Stop: 07/01/18 11:30 Last Admin: 07/01/18 07:10 Dose: 200 mg Documented by: Gabapentin (Neurontin) 300 mg PO PREOP NR Stop: 07/01/18 12:00 Last Admin: 07/01/18 07:10 Dose: 300 mg Documented by: Hydromorphone HCl (Dilaudid) 0.5 mg IV Q10MIN PRN PRN Reason: Pain , Severe (7-10) Stop: 07/01/18 12:00 Lactated Ringer's (Lactated Ringers) 1,000 mls @ 100 mls/hr IV DIRECT MARISOL Last Admin: 07/01/18 06:50 Dose: 100 mls/hr Documented by: Midazolam HCl (Versed) 2 mg IV PREOP NR Stop: 07/01/18 12:00 Last Admin: 07/01/18 07:14 Dose: 2 mg Documented by: Ondansetron HCl (Zofran) 4 mg IV ONCE PRN PRN Reason: Nausea And Vomiting Stop: 07/01/18 16:00 - Brief post op/procedure progress note Date of procedure: 07/01/18 (see dictated operative note) - Hospital course Hospital course: Patient was admitted underwent the above him procedure without any complications. Vaginal packing removed in recovery room. No bleeding seen. Patient will be discharged with follow-up in office in 1-2 weeks for postop check. - Disposition Condition at discharge: Good Disposition: DC-01 TO HOME OR SELFCARE - Discharge Diagnoses (1) Missed Status: Acute (2) Blood type O+ Status: Acute (3) Blood type, Rh positive Status: Acute Short Stay Discharge Plan Activity: advance as tolerated Diet: regular Additional Instructions: ACTIVITY ADVANCE TOLERATED DIET REGULAR PRESCRIPTIONS GIVEN FOR PAIN AND UTERINE CONTRACTION TAKE DIRECTED. Follow up with: NANCIE TRIPLETT [Other] - 7 Days Forms: Outpatient Surgery DC Inst. Prescriptions: Methylergonovine [Methergine] 0.2 mg PO Q8HR #6 tablet Ibuprofen [Motrin 800 MG tab] 800 mg PO Q6H PRN #30 tablet PRN Reason: Pain Acetaminophen/Codeine [Tylenol #3] 1 tab PO Q4HR PRN #20 tablet PRN Reason: Pain
[2018-07-01] MEDS ORDERED: TYLENOL #3 PO PRN (09:00)
[2018-07-01 10:14] VITALS: BP 106/67
== END 2018-07-01 10:05 | disposition home or self-care (01) ==
LOC: OR 06:06
PROVIDERS: ATTEND Obstetrics & Gynecology
DX: O02.1 Missed abortion (principal); Z91.040 Latex allergy status; Z91.013 Allergy to seafood; Z79.899 Other long term (current) drug therapy; Z98.891 History of uterine scar from previous surgery; Z83.3 Family history of diabetes mellitus; Z82.49 Family history of ischemic heart disease and other diseases of the circulatory system; Z86.2 Personal history of diseases of the blood and blood-forming organs and certain disorders involving the immune mechanism
CPT/HCPCS: 36415; 59820; 85014; 85018; 88305; J1100; J1170; J2210; J2250; J2704; J2710; J3010; J7120

== ENCOUNTER 2019-10-03 12:51 | Outpatient (CLI) | payer OTHER ==
[2019-10-03 13:55] LABS: Bacteria,Urine 1+ /HPF (Negative); Bilirubin,Urine NEG (Negative); Blood,Urine NEG (Negative); Color,Urine Yellow (Yellow); Mucus,Urine 1+ /HPF; Protein,Urine <15 mg/dL mg/dL (Negative); Urobilinogen,Urine < 2.0 mg/dL (<2.0)
[2019-10-03] MEDS ORDERED: LACTATED RINGERS 1,000 ML IV SCH (14:00)
[2019-10-03] MEDS ORDERED: ACETAMINOPHEN 325 MG TAB PO ONE (15:22)
[2019-10-03 15:28] LABS: Hematocrit 35.2 % (30.3-42.9); Hemoglobin 11.8 gm/dl (10.1-14.3); Mean Corpuscular HGB Conc 33 % (30-34); Mean Corpuscular Volume 92 fl (79-97); Platelet Count 207 K/mm3 (140-440); Red Blood Count 3.81 M/mm3 (3.65-5.03); Red Cell Distribution Width 16.2 % (13.2-15.2)
[2019-10-03 15:40] LABS: Alanine Aminotransferase 13 units/L (7-56); Uric Acid 4.4 mg/dL (3.5-7.6)
[2019-10-03 16:19] VITALS: BP 104/70
[2019-10-03] MEDS ORDERED: TERBUTALINE 1 MG/1 ML INJ SUB-Q ONE (17:00)
== END 2019-10-03 16:43 | disposition home or self-care (01) ==
LOC: TRG 12:51 → APU 15:22 → TRG 16:43
PROVIDERS: ATTEND Obstetrics & Gynecology
DX: O26.893 Other specified pregnancy related conditions, third trimester (principal); M79.89 Other specified soft tissue disorders; R51 Headache; O99.513 Diseases of the respiratory system complicating pregnancy, third trimester; J45.909 Unspecified asthma, uncomplicated; Z3A.33 33 weeks gestation of pregnancy
CPT/HCPCS: 36415; 59025; 81001; 82565; 83615; 84450; 84460; 84550; 85027; 96360; 96361; J7120

== ENCOUNTER 2019-10-11 14:52 | Inpatient (IN) | payer OTHER ==
[2019-10-11] MEDS: LACTATED RINGERS 1,000 ML IV SCH ×2 (16:40→17:46)
[2019-10-11] MEDS ORDERED: BETAMET ACET/BETAMET NA PH 6 MG/ML INJ 5 ML MDV IM ONE (18:22)
[2019-10-11 18:39] LABS: Bacteria,Urine 1+ /HPF (Negative); Bilirubin,Urine NEG (Negative); Blood,Urine NEG (Negative); Color,Urine Yellow (Yellow); Mucus,Urine FEW /HPF; Protein,Urine <15 mg/dL mg/dL (Negative); Urobilinogen,Urine < 2.0 mg/dL (<2.0)
--- NOTE | 2019-10-11 18:52 | Anesthesia Consultation ---
Anesthesia Consult and Med Hx Date of service: 10/11/19 - Airway Anesthetic Teeth Evaluation: Good ROM Head & Neck: Adequate Mental/Hyoid Distance: Adequate Mallampati Class: Class II Intubation Access Assessment: Good - Pulmonary Exam CTA: Yes - Cardiac Exam Cardiac Exam: RRR - Pre-Operative Health Status ASA Pre-Surgery Classification: ASA2 Proposed Anesthetic Plan: General, Epidural, Spinal - Pulmonary Hx Smoking: No Hx Asthma: Yes (last attack 06/2019) COPD: No Hx Pneumonia: No Hx Sleep Apnea: No - Cardiovascular System Hx Hypertension: No Hx Heart Attack/AMI: No Hx Pacemaker: No Hx Internal Defibrillator: No - Central Nervous System Hx Seizures: Yes (as a child x1 related to fever) Hx Psychiatric Problems: No - Gastrointestinal Hx Gastroesophageal Reflux Disease: No - Endocrine Hx Renal Disease: No Hx End Stage Renal Disease: No Hx Liver Disease: No Hx Hypothyroidism: No Hx Hyperthyroidism: No - Hematic Hx Anemia: Yes Hx Sickle Cell Disease: No - Other Systems Hx Alcohol Use: No Hx Cancer: No
[2019-10-11 19:08] LABS: Hematocrit 32.3 % (30.3-42.9); Hemoglobin 11.3 gm/dl (10.1-14.3); Mean Corpuscular HGB Conc 35 % (30-34); Mean Corpuscular Volume 95 fl (79-97); Platelet Count 217 K/mm3 (140-440); Red Blood Count 3.42 M/mm3 (3.65-5.03); Red Cell Distribution Width 16.8 % (13.2-15.2)
--- NOTE | 2019-10-11 19:18 | History and Physical Report ---
History of Present Illness Date of examination: 10/11/19 Date of admission: 10/11/19 18:39 Chief complaint: Prodromal labor with placenta accreta and previous delivery x2 History of present illness: Past History : 6 Term Births: 3 Premature Births: 1 Living Children: 4 Para: 4 Mult. Births: 0 Prev : 2 Prev. attempt? 0 Aborta: 1 Elect. Ab: 0 Spont. Ab: 1 Ectopics: 0 # 1 Delivery date: 05/21/2009 Weeks Gestation: 40 Delivery type: Vaginal Hours of labor: 9 Anesthesia type: none Delivery location: [facility] Sex: Male weight: 8.38 Name: Enoc # 2 Delivery date: 10/28/2012 Weeks Gestation: 40 Delivery type: Hours of labor: 8 Delivery location: [facility] Sex: Male weight: 9-4 Name: Denilson # 3 Delivery date: 11/05/2014 Weeks Gestation: 31.5 Delivery type: Delivery location: [facility] Infant Sex: Male weight: 2'10 Comments: abruption, bled during . growth retardation. # 4 Delivery date: 01/06/2017 Weeks Gestation: 39 Delivery type: Anesthesia type: Spinal Delivery location: [facility] Infant Sex: male weight: 7.50 Name: James # 5 Delivery date: 07/01/2018 Weeks Gestation: 8 Delivery type: SAB Delivery location: [facility] Comments: D&C done Past Medical History: Reviewed history from 06/25/2018 and no changes required: no hx of dvt while taking ocp Blood Transfusion (2012) Blood Transfusion (2014) Anemia Asthma Past Surgical History: Reviewed history from 07/01/2018 and no changes required: 2015 (01/06/2017) D&C: (07/01/2018) Past Medical History Abnormal PAP: negative FRANCY Exposure: negative Infertility: negative Uterine Anomaly: negative Uterine Surgery (not C/S): negative Other Gynecologic Problems: negative Social Hx: single no e/t/d Smoking History: Patient has never smoked. Infection History Hx of STD: none HIV Risk Eval: no Hepatitis B Risk Eval: low risk Personal hx. of genital herpes: yes HSV 1 Partner hx. of genital herpes: no Rash, Viral, or Febrile illness since last LMP? no Varicella/Chicken Pox Status: Immunized Genetic History Congenital Heart Defect: Mom: no Dad: no Ashley Disease: Mom: no Dad: no Thalassemia Mom: no Dad: no Neural Tube Defect Mom: no Dad: no Down's Syndrome Mom: no Dad: no Greg-Sachs Mom: no Dad: no Sickle Cell Disease/Trait Mom: no Dad: no Hemophilia Mom: no Dad: no Muscular Dystrophy Mom: no Dad: no Cystic Fibrosis Mom: no Dad: no Fior Chorea Mom: no Dad: no Mental Retardation Mom: no Dad: no Fragile X Mom: no Dad: no Other Genetic/Chromosomal Disorder Mom: no Dad: no Child w/other defect Dad: no Enviromental Exposures Xray Exposure: no Medication, drug, or alcohol use since LMP: no Chemical/Other Exposure: no Exposure to Cat Liter: no Hx of Parvovirus (Fifth Disease): no Occupational Exposure to Children: none Active Medications: None Current Allergies (reviewed today): * NKDA (Critical) * LATEX (Critical) * SEAFOOD (Critical) Past History - Obstetrical History Expected Date of Delivery: 11/20/19 Actual Gestation: 34 Week(s) 2 Day(s) : 6 Medications and Allergies Allergies Allergy/AdvReac Type Severity Reaction Status Date / Time Fish Containing Products Allergy Angioedema Verified 07/01/18 06:28 latex Allergy Itching, Verified 07/01/18 06:28 swelling Active Meds: Active Medications Citric Acid/Sodium Citrate (Bicitra) 30 ml PO ONCE ONE Stop: 10/12/19 06:31 Famotidine (Pepcid) 20 mg IV ONCE ONE Stop: 10/12/19 06:31 Lactated Ringer's (Lactated Ringers) 1,000 mls @ 125 mls/hr IV DIRECT MARISOL Last Admin: 10/11/19 17:46 Dose: 1,200 mls/hr Documented by: Oxytocin/Sodium Chloride (Pitocin/Ns 20 Unit/1000ml Drip) 20 units in 1,000 mls @ 0 mls/hr IV TITR MARISOL Lactated Ringer's (Lactated Ringers) 1,000 mls @ 2,250 mls/hr IV PREOP MARISOL Stop: 10/13/19 05:57 Cefazolin Sodium (Ancef/Sterile Water 2 Gm/20 Ml) 2 gm in 20 mls @ 80 mls/hr IV PREOP NR; Protocol Metoclopramide HCl (Reglan) 10 mg IV ONCE ONE Stop: 10/12/19 06:31 Review of Systems All systems: negative Genitourinary: contractions - Vital Signs Vital signs: Vital Signs Pulse Pulse Ox 104 H 96 10/11/19 15:52 10/11/19 15:52 Temp Pulse Resp BP Pulse Ox 99.1 F 95 H 20 104/56 100 10/11/19 15:57 10/11/19 18:34 10/11/19 15:57 10/11/19 16:02 10/11/19 18:34 - Physical Exam Breasts: Positive: deferred Cardiovascular: Regular rate Lungs: Positive: Normal air movement Abdomen: Positive: normal appearance. Negative: tenderness Genitourinary (Female): Positive: normal external genitalia, normal perenium Vulva: both: normal Uterus: Positive: enlarged. Negative: tender Anus/Rectum: Positive: normal perianal skin Extremities: Positive: normal. Negative: tenderness, edema Deep Tendon Reflex Grade: Normal +2 - Obstetrical FHR: category 1 Uterine Contraction Monitor Mode: External Cervical Dilatation: 1 Cervical Effacement Percentage: 20 station: -4, soft, midline Uterine Contraction Pattern: Irregular (mostly occuring when her bladder is full) Results Result Diagrams: 10/11/19 16:30 Abnormal lab results 10/11/19 Range/Units 16:30 RBC 3.42 L (3.65-5.03) M/mm3 MCH 33 H (28-32) pg MCHC 35 H (30-34) % RDW 16.8 H (13.2-15.2) % All other labs normal. Assessment and Plan She appears to be in prodromal labor. Stable at this time however d/t concern fo r progression to active labor will admit and plan for delivery. Because of the severe complications that can occur with an placenta accreta will plan for delivery in am when all staff and resources are available. However she's aware if active labor or any complications occur will proceed with delivery immediately. She desires sterilization and d/t to her poor history (multiple blood transfusions, abruption, delivery and two deliveries) she agrees to proceed with delivery with hysterectomy. She was informed there is a chance she may NOT actually have an accreta and a hysterectomy will prevent her from becoming ever again. The option for conservative uterine management which could involve attempting to remove placenta and resection areas that appear to have retained placental tissue with administration of uterotonic, hemostatic agents and close observation and UAE if bleeding persists or recurs. Also discussed closing the uterus with the placenta intact again administer uterotonic medications, TXA and UAE if persistent or recurrent bleeding occurs. Emphasized the risk of massive hemorrhage with conservative therapy as well as with hysterectomy. She agrees to blood product transfusion as needed however also explained even with transfusion she could develop DIC, ARDS, infection and . Consents were reviewed and signed, she voiced understanding and desires to proceed with delivery with hysterectomy(removal of uterus) and removal of both fallopian tubes. - Patient Problems (1) 34 weeks gestation of Current Visit: Yes Status: Acute (2) Placenta accreta affecting delivery Current Visit: Yes Status: Acute (3) Previous section complicating Current Visit: No Status: Chronic (4) Asthma Current Visit: Yes Status: Chronic Qualifiers: Asthma complication type: uncomplicated
[2019-10-11] MEDS ORDERED: SODIUM CHLORIDE 0.9% 500 ML 500 ML IV ONE (20:17)
[2019-10-12] MEDS ORDERED: TERBUTALINE 1 MG/1 ML INJ ONE (00:02)
[2019-10-12] MEDS ORDERED: TERBUTALINE 1 MG/1 ML INJ SUB-Q ONE (00:05)
[2019-10-12] MEDS: LACTATED RINGERS 1,000 ML IV SCH (00:10)
[2019-10-12] MEDS ORDERED: OXYTOCIN 20 UNIT/1000ML DRIP 20 UNITS/1,000 ML BAG IV SCH ×2 (05:30→10:00)
[2019-10-12] MEDS ORDERED: LACTATED RINGERS 1,000 ML IV SCH (05:30)
[2019-10-12] MEDS ORDERED: ceFAZolin/Water 2 GM/20 ML 2 GM/20 ML SYRINGE IV NR (05:30)
--- NOTE | 2019-10-12 06:21 | Anesthesia Day of Surgery ---
Anesthesia Day of Surgery - Day of Surgery Patient Examined: Yes Patient H&P Reviewed: Yes Patient is NPO: Yes Beta Blockers: No Cardiac Clearance: No Pulmonary Clearance: No Jorge Luis's Test: Negative
[2019-10-12] MEDS ORDERED: BICITRA ORAL LIQD 30ML PO SCH (06:30)
[2019-10-12] MEDS ORDERED: TRANEXAMIC ACID 1,000 MG in SODIUM CHLORIDE 0.9% 100 ML IV PRN (06:30)
[2019-10-12] MEDS ORDERED: METHYLERGONOVINE MALEATE 0.2 MG/ML VIAL IM PRN (06:30)
[2019-10-12] MEDS ORDERED: FAMOTIDINE 20 MG/2 ML INJ IV SCH (06:30)
[2019-10-12] MEDS ORDERED: METOCLOPRAMIDE 10 MG/2 ML INJ IV SCH (06:30)
[2019-10-12] MEDS ORDERED: DEXMEDETOMIDINE 200 MCG/2 ML VIAL IV ONE (06:56)
[2019-10-12] MEDS ORDERED: ePHEDrine SULFATE 50 MG/1 ML INJ ONE (07:55)
[2019-10-12] MEDS ORDERED: WATER FOR IRRIG STERILE 1,500 ML BOTTLE IR ONE (08:00)
[2019-10-12] MEDS ORDERED: SODIUM CHLORIDE 0.9% IRR 1,500 ML BOTTLE IR ONE (08:00)
[2019-10-12] MEDS ORDERED: CITRIC ACID-SOD CITRATE 500 ML IV ONE (08:30)
[2019-10-12] MEDS ORDERED: miSOPROStol 200 MCG TAB ONE (08:36)
[2019-10-12] MEDS ORDERED: CARBOPROST TROMETHAMINE 250 MCG/1 ML INJ IM ONE (08:37)
[2019-10-12] MEDS ORDERED: METHYLERGONOVINE MALEATE 0.2 MG/ML VIAL IM ONE (08:37)
[2019-10-12] MEDS ORDERED: LACTATED RINGERS 1,000 ML ONE (08:51)
[2019-10-12] MEDS ORDERED: KETOROLAC 30 MG/1 ML INJ ONE (08:52)
[2019-10-12] MEDS ORDERED: ONDANSETRON 4 MG/2 ML INJ ONE (08:52)
[2019-10-12] MEDS ORDERED: NALOXONE 0.4 MG/1 ML INJ IV PRN (09:48)
[2019-10-12] MEDS ORDERED: LANOLIN/ZINC/DIMETHICONE (LANSINOH) 7 GM TP PRN (09:48)
[2019-10-12] MEDS ORDERED: WITCH HAZEL/ GLYCERIN PAD TP PRN (09:48)
[2019-10-12] MEDS ORDERED: MORPHINE 4 MG/1 ML INJ IV PRN (09:55)
[2019-10-12] MEDS ORDERED: D5W/LACTATED RINGERS 1,000 ML IV SCH (10:00)
[2019-10-12] MEDS ORDERED: BUPIVACAINE-EPINEPHRINE/PF 0.25%-1:200,000 (30 ML) VIAL INFILTRATI ONE (10:08)
--- NOTE | 2019-10-12 10:11 | Post Operative Note ---
Pre-op diagnosis: IUP@34 weeks, early labor, placenta accreta, desires sterilization Post-op diagnosis: other (IUP@34 weeks, early labor, desires sterilization) Findings: no obvious evidence of accreta Procedure: RLTCS with bilateral salpingectomy Anesthesia: spinal, epidural Surgeon: TIERRA PRADO Telephone Cleaner: DUANE COLLADO Estimated blood loss: other (600) Pathology: list (placenta, bilateral fallopian tubes) Specimen disposition: to lab Condition: stable Disposition: floor (Labor and delivery)
[2019-10-12] MEDS: ACETAMINOPHEN 325 MG TAB PO SCH ×2 (13:55→22:07)
[2019-10-12] MEDS: ceFAZolin/NS 1 GM/50 ML 1 GM/50 ML BAG IV SCH ×2 (16:15→23:49)
[2019-10-12] MEDS: KETOROLAC 30 MG/1 ML INJ IV SCH ×2 (16:31→23:49)
[2019-10-12 20:38] LABS: Hematocrit 25.6 % (30.3-42.9); Hemoglobin 8.9 gm/dl (10.1-14.3)
[2019-10-12] MEDS: MORPHINE 2 MG/1 ML INJ IV PRN (22:28)
[2019-10-12] MEDS: SIMETHICONE 80 MG CHEW TAB PO PRN (22:41)
[2019-10-13] MEDS: MORPHINE 2 MG/1 ML INJ IV PRN ×2 (03:40→14:30)
[2019-10-13] MEDS: ACETAMINOPHEN 325 MG TAB PO SCH ×2 (05:33→15:46)
[2019-10-13] MEDS: KETOROLAC 30 MG/1 ML INJ IV SCH ×2 (05:34→15:45)
--- NOTE | 2019-10-13 08:06 | Operative Report ---
Operative Report Operative Report: Date of operation: 10/12/2019 Pre-operative diagnosis: 1. 34 weeks gestational age 2. Placenta accreta 3. BMI 31 kg/m 4. Desires bilateral salpingectomy for sterilization 5. Early labor Post-operative diagnosis: 1. 34 weeks gestational age 2. Placenta accreta 3. BMI 31 kg/m 4. Desires bilateral salpingectomy for sterilization 5. Early labor Procedure name(s): Low transverse delivery with bilateral salpingectomy for sterilization Surgeon: Carolina Vergara MD Co-surgeon: Franny Rothman MD Anesthesia: Combined spinal epidural EBL: 600 mL Urine output: [] mL of [] urine out at the end of the procedure Fluids: [] mL Findings: Liveborn female weight 6 Lbs. 0 oz. Apgars of 8 and 8 at one and 5 minutes Indications: This a 29-year-old female 6 para 4 previous x2 with a diagnosis of placenta percreta who presented to labor and delivery in early labor. Once appropriate resources and support services rep available decision was made to proceed with delivery with hysterectomy. Procedure: Patient was taking to the operating room. Combined spinal epidural anesthesia was placed. Patient was then prepped and draped in the usual sterile fashion Timeout was performed. Once an appropriate level of anesthesia was noted, a Pfannenstiel incision was made and extended the fascia which was incised and extended lateral direction. The overlying fascia was sharply dissected away from the underlying rectus muscles in the superior inferior direction. The midline was entered bluntly. The large [place] re tractor was placed. Bladder blade was placed. Vesicouterine fold was incised with blunt dissection bladder flap was created. A transverse incision was made in the lower uterine segment and extended superolateral direction with finger fractionation. Copious clear fluid was noted. was delivered from the cephalic position. had spontaneous cry and excellent tone. Mouth and nose bulb suctioned. Cord was doubly clamped and cut infant was given to the resuscitation team present. Placenta began to spontaneously deliver immediately after delivery the infant. The remainder of the placenta was delivered with only gentle traction on the cord. Manual extraction was not required. The placenta was sent to pathology. The uterus was exteriorized and cleaned of any further placental tissue and products of conception. At this point because there was no obvious evidence of accreta and the uterus was firm and there was no bleeding from the uterus cavity, the decision was made not perform the hysterectomy. Patient was informed of the findings and voiced understanding and agreed with plan of care. Uterine incision was approximated using 0 Vicryl in a running interlocking stitch followed by further suture of 0 Vicryl in imbricating fashion. Once hemostasis was noted, confirmation was obtained from patient to proceed with salpingectomy for sterilization. The left tube was grasped with a [place] clamp and elevated and salpingectomy was performed without complications. Hemostasis was noted. The same procedure was performed on the right fallopian tube. Both tubes were sent to pathology in separate specimen containers. When hemostasis was noted the uterus was allowed back in the pelvic cavity. Pelvis was irrigated with warm normal saline. Once hemostasis was noted the rectus muscles were approximated using 0 Vicryl interrupted simple stitches 3. Once hemostasis was noted the fascia was approximated using 0 Vicryl simple running stitch. The incision was irrigated with warm saline, once hemostasis as noted, skin was approximated using 4-0 Vicryl on a Sky needle in a subcuticular manner. Counts were correct x3. Patient tolerated the procedure well, she was taken to recovery room in stable condition.
--- NOTE | 2019-10-13 08:21 | Progress Note ---
Assessment and Plan 29 y.o. female, , repeat c/s with bilateral salpinjectomy at 34 weeks gestation s/p prodromal labor. Pt laying in bed quietly. No visible s/s of distress. Reports pain is better managed this morning than overnight. Rates pain 3/10 at this time. VSSAF. Post-op H/H 12/12. Drop d/t blood loss during delivery. Ambulating and voiding without difficulty. Denies RAO, blurry vision, lightheadedness, dizziness, or chest pain. States she has voided twice since johnson removed. ABD dressing clean, dry, and intact. RN to remove today. Fundus firm at umbilicus. Scant vaginal bleeding. +flatus since delivery. Normal bowel sounds. Infant in NICU. P: Continue PP pathway. Start PO iron supplementation. - Patient Problems (1) delivery delivered Onset Date: 01/06/17 Current Visit: No Status: Acute Subjective - Subjective Date of service: 10/13/19 Principal diagnosis: POD#1 s/p repeat C/S Patient reports: appetite normal, voiding normally, pain well controlled, flatus, ambulating normally : in NICU Objective - Vital Signs Latest vital signs: Vital Signs Temp Pulse Resp BP BP Pulse Ox 10/13/19 04:04 98.2 F 98 H 18 91/57 99 10/13/19 00:08 98.3 F 110 H 17 87/45 97 10/12/19 19:46 98.4 F 83 17 112/66 98 10/12/19 15:15 98.1 F 80 18 104/61 97 10/12/19 14:30 78 109/67 10/12/19 13:30 83 106/64 10/12/19 12:30 80 111/69 10/12/19 12:13 98.9 F 76 16 110/69 110/69 10/12/19 11:11 76 127/66 10/12/19 10:45 98.1 F 76 21 117/66 100 10/12/19 10:35 98.0 F 81 24 115/67 100 10/12/19 10:20 65 17 88/58 97 10/12/19 10:11 59 L 16 101/61 99 10/12/19 10:00 67 19 106/68 96 10/12/19 09:55 69 13 96/60 95 10/12/19 09:51 97.7 F 69 12 100/58 95 Intake and Output 10/12/19 10/13/19 10/13/19 22:59 06:59 14:59 Intake Total 410 400 Output Total 800 0 Balance -390 400 Intake: IV 50 ANCEF/NS 1 GM/50 ML 1 gm 50 In 50 ml @ 100 mls/hr IV Q8H [facility] Rx#:[id number] Oral 120 400 Intake, Free Water 240 Output: Urine 800 0 Indwelling Catheter 800 0 Other: Total, Intake Amount 120 200 Total, Output Amount 800 0 # Voids Void 350 - Exam Cardiovascular: Present: Regular rate, Normal S1, Normal S2 Lungs: Present: Clear to auscultation, Normal air movement Abdomen: Present: normal appearance, soft, normal bowel sounds Uterus: Present: normal, firm, fundal height at umbilicus Extremities: Present: normal Deep Tendon Reflex Grade: Normal +2 Incision: Present: normal, dry, intact (ABD dressing clean, dry, and intact) - Labs Labs: Abnormal lab results 10/11/19 10/12/19 Range/Units 16:30 20:23 Hgb 8.9 L (10.1-14.3) gm/dl Hct 25.6 L D (30.3-42.9) % Crossmatch See Detail
[2019-10-13] MEDS ORDERED: DIPHtheria,PERTUSSIS(ACELL),TETANUS VACCINE/PF 0.5 ML VIAL IM ONE (10:00)
[2019-10-13] MEDS: DOCUSATE SODIUM 100 MG CAP PO SCH ×2 (10:07→22:14)
[2019-10-13] MEDS: oxyCODONE /ACETAMINOPHEN 5-325MG TAB PO PRN ×2 (10:07→17:48)
[2019-10-13] MEDS: SIMETHICONE 80 MG CHEW TAB PO PRN (10:11)
[2019-10-13] MEDS: FERROUS SULFATE 325 MG TAB PO SCH ×2 (10:21→22:14)
--- NOTE | 2019-10-13 10:37 | Post Anesthesia Evaluation ---
- Post Anesthesia Evaluation Patient Participated: Yes Airway Patent: Yes Stable Respiratory Function: Yes Nausea/Vomiting: No Temp > 96.8F: Yes Pain Manageable: Yes Adequeate Hydration: Yes Anesthesia Complications: No Block Receding Appropriately: Yes Patient on Ventilator: No
[2019-10-13] MEDS ORDERED: IBUPROFEN 800 MG TAB PO SCH (16:00)
--- NOTE | 2019-10-13 19:02 | Event Note ---
Date: 10/13/19 (Called by pt to discuss pain mgt) Pt resting quietly in room. States that there are times she feels as if her body is going into shock. Pt's lungs clear bilateral. heart RRR. Skin warm and dry We reviewed the rationale for pain mgt and made a plan that pt felt would be better for her. Morphine will be 4mg one more time. Then Percocet and Motrin on schedule. All concerns addressed. Pao DICKERSON present for our conversation and voices understanding with plan
[2019-10-13] MEDS ORDERED: oxyCODONE /ACETAMINOPHEN 5-325MG TAB PO ONE (22:00)
--- NOTE | 2019-10-13 22:16 | Event Note ---
Date: 10/13/19 Patient resting in bed no obvious complaints just concerned about pain management as receiving medication in a timely manner. Discussed opioid abuse and addiction and appropriate pain managed. Will give 2 Percocet now then 1 every 6hrs x3, alternating with Motrin at 100 then q6hr x3 doses then she will have to ask for medication. She voiced understanding and agrees with POC
[2019-10-14] MEDS: IBUPROFEN 800 MG TAB PO SCH ×3 (01:13→15:32)
[2019-10-14] MEDS ORDERED: oxyCODONE /ACETAMINOPHEN 5-325MG TAB PO SCH (04:00)
[2019-10-14] MEDS ORDERED: oxyCODONE /ACETAMINOPHEN 5-325MG TAB PO PRN (05:26)
[2019-10-14] MEDS: oxyCODONE /ACETAMINOPHEN 5-325MG TAB PO SCH ×3 (06:30→18:07)
--- NOTE | 2019-10-14 08:11 | Progress Note ---
Assessment and Plan patient w/o complaints, anxious to go see infant in NICU. She is pumping her breast. VSSAF, H&H 8.9/25.6 - asymptomatic anemia from acute blood loss. lochia scant, fundus firm. incision D&I. - Patient Problems (1) Anemia associated with acute blood loss Current Visit: Yes Status: Acute Plan to address problem: Asymptomatic Continue FE supplementation (2) delivery delivered Onset Date: 01/06/17 Current Visit: No Status: Acute Plan to address problem: continue postop pathway advance diet and activity as tolerated consider d/c home tomorrow if stable Subjective - Subjective Date of service: 10/14/19 Principal diagnosis: POD#1 s/p repeat C/S Patient reports: appetite normal, voiding normally, pain well controlled, flatus, ambulating normally [place]: in NICU (pumping breast milk for in NICU) Objective - Vital Signs Latest vital signs: Vital Signs Temp Pulse Resp BP BP 10/14/19 07:17 96.6 F L 18 98/71 10/14/19 06:30 18 10/14/19 01:13 16 10/14/19 00:00 98 F 71 16 102/78 10/13/19 22:20 18 10/13/19 17:42 99.1 F 112 H 10/13/19 16:15 99.9 F H 114 H 18 104/68 Intake and Output 10/13/19 10/14/19 10/14/19 23:59 07:59 15:59 Intake Total 1340 300 Output Total 500 Balance 840 300 Intake: Oral 1040 Intake, Free Water 300 300 Output: Urine 500 Void 500 Other: Total, Intake Amount 360 Total, Output Amount 500 # Voids Void 1 1 - Exam Breasts: Present: normal, Cardiovascular: Present: Regular rate Lungs: Present: Clear to auscultation, Normal air movement Abdomen: Present: normal appearance, soft Vulva: both: normal Uterus: Present: normal, firm, fundal height below umbilicus Extremities: Present: normal Deep Tendon Reflex Grade: Normal +2 Incision: Present: normal, dry, intact
[2019-10-14] MEDS: FERROUS SULFATE 325 MG TAB PO SCH ×2 (12:27→22:13)
[2019-10-14] MEDS: DOCUSATE SODIUM 100 MG CAP PO SCH ×2 (12:27→22:14)
[2019-10-14] MEDS ORDERED: oxyCODONE /ACETAMINOPHEN 5-325MG TAB PO ONE (22:29)
[2019-10-15] MEDS ORDERED: oxyCODONE /ACETAMINOPHEN 5-325MG TAB PO SCH ×2 (04:00→11:00)
[2019-10-15] MEDS ORDERED: IBUPROFEN 800 MG TAB PO PRN (05:08)
--- NOTE | 2019-10-15 08:34 | Discharge Summary ---
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 S:Patient ambulated to NICU, S.O. present in room, no voiced complaints. He was made aware of discharge. O: Fundus firm, below umbilicus. Asymptomatic anemia A: Doing well S/p Repeat with Tubal P: Discharge today with instructions. RTO 1 week Postop. Patient aware of date and time Condition at discharge: Good Disposition: DC-01 TO HOME OR SELFCARE - Discharge Diagnoses (1) delivery delivered Status: Acute Comment: rto 1 week for postop care Plan - Discharge Medications Prescriptions: Ibuprofen [Motrin 800 MG tab] 800 mg PO Q8H 1 Days #30 tablet oxyCODONE /ACETAMINOPHEN [Percocet 5/325 mg] 1 - 2 tab PO Q6H #20 tablet - Provider Discharge Summary Activity: routine, no sex for 6 weeks, no heavy lifting 4 weeks, no strenuous exercise Diet: routine Instructions: routine Additional instructions: [] Smoking cessation referral if applicable(refer to patient education folder for contact #) [] Refer to [facility] Booklet Call your doctor immediately for: * Fever > 100.5 * Heavy vaginal bleeding ( >1 pad per hour) * Severe persistent headache * Shortness of breath * Reddened, hot, painful area to leg or breast * Drainage or odor from incision. * Keep incision clean and dry at all times and follow doctor's instructions regarding bathing/showering - Follow up plan Follow up: PRIMARY CARE, [Primary Care Provider] - 7 Days NATALIE ZUÑIGA CNM [Advanced Practice Nurse] - 7 Days (Congratulations! Please call [phone] to schedule your post operative visit in 1 week Take medications as prescribed Call with any concerns)
[2019-10-15 10:15] VITALS: BP 116/79
[2019-10-15] MEDS: DOCUSATE SODIUM 100 MG CAP PO SCH (11:00)
[2019-10-15] MEDS: FERROUS SULFATE 325 MG TAB PO SCH (11:00)
== END 2019-10-15 15:06 | disposition home or self-care (01) | DRG 765 ==
LOC: APU 14:52 → TRG 14:52 → LD 18:39 → OBSVTOIN 19:05 → INTOOBSV 19:05 → OB 10-12 15:17
PROVIDERS: ADMIT Obstetrics & Gynecology; ATTEND Obstetrics & Gynecology
PROC: 10D00Z1 Extraction of Products of Conception, Low, Open Approach (ICD-10-PCS; principal; 2019-10-12)
PROC: 0UT70ZZ Resection of Bilateral Fallopian Tubes, Open Approach (ICD-10-PCS; 2019-10-12)
PROC: 3E0234Z Introduction of Serum, Toxoid and Vaccine into Muscle, Percutaneous Approach (ICD-10-PCS; 2019-10-13)
DX: O43.213 Placenta accreta, third trimester (principal); D62 Acute posthemorrhagic anemia; O34.211 Maternal care for low transverse scar from previous cesarean delivery; O99.52 Diseases of the respiratory system complicating childbirth; J45.909 Unspecified asthma, uncomplicated; O99.02 Anemia complicating childbirth; Z3A.34 34 weeks gestation of pregnancy; Z37.0 Single live birth; Z91.040 Latex allergy status; Z91.013 Allergy to seafood
CPT/HCPCS: 36415; 81001; 85014; 85018; 85027; 86592; 86850; 86900; 86901; 86920; 88302; 88307; G0378; A6250; J0690; J0702; J1885; J2210; J2270; J2405; J2590; J2765; J3105; J3490; J7120; J7121